=== PATIENT | female | born 1995 | race Hispanic/Latino ===

== ENCOUNTER 2023-03-14 01:35 | Emergency (ER) | payer BC, MEDICAID ==
[~2023-03-14] VITALS: Ht 160 cm; Wt 118.4 kg
[2023-03-14] MEDS ORDERED: IBUP-1493 PO (05:39)
[2023-03-14] MEDS ORDERED: CIPOTIC AD (05:39)
[2023-03-14 06:39] VITALS: BP 128/72
== END 2023-03-14 06:45 | disposition home or self-care (01) ==
LOC: EDH 01:35
DX: H60.92 Unspecified otitis externa, left ear (principal)